=== PATIENT | female | born 2000 | race Caucasian/White ===

== ENCOUNTER → 2024-10-29 | Outpatient (CLI) | payer OTHER, SELFPAY ==
--- NOTE | 2024-10-29 13:30 | RAD_ITS ---
PROCEDURE: ELBOW MIN 3 VIEWS REASON FOR EXAM: Pain. Injury. TECHNIQUE: 3 view(s) of each elbow COMPARISON: None. FINDINGS: LEFT ELBOW: No visible fracture. No suspicious bone lesion. Normal alignment. No effusion. On the lateral projection, a 4.0 x 0.2 cm linear artifact projects over the anterior cortex of the middle 3rd of the humerus. Soft tissues are otherwise unremarkable. RAD/Elbow min 3 Views IMPRESSION: No acute osseous abnormalities. Suspected radiopaque foreign body. Clinical correlation recommended. Reading Location: [facility]
== END | disposition home or self-care (01) ==
LOC: MTLAB 13:28 → MTRAD 13:28
PROVIDERS: Referring Provider Family Medicine; Visit Provider Family Medicine
DX: S59.802A Other specified injuries of left elbow, initial encounter (principal)
CPT/HCPCS: 73080

== ENCOUNTER → 2025-01-16 | Outpatient (CLI) | payer OTHER, SELFPAY ==
[2025-01-21 08:01] LABS: HPV Reflexed? NOT INDICATED
== END | disposition home or self-care (01) ==
LOC: LABSPEC 11:10
PROVIDERS: Referring Provider Nurse Practitioner Family; Visit Provider Nurse Practitioner Family
DX: Z12.4 Encounter for screening for malignant neoplasm of cervix (principal)
CPT/HCPCS: 88175; G0145